=== PATIENT | female | born 1985 | race Caucasian/White ===

== ENCOUNTER 2016-06-22 10:47 | Emergency (ER) | payer OTHER | END 2016-06-22 12:42 | disposition home or self-care (01) | LOC: ER1 10:47 | DX: J02.9 Acute pharyngitis, unspecified (principal); Z20.828 Contact with and (suspected) exposure to other viral communicable diseases; F17.210 Nicotine dependence, cigarettes, uncomplicated; Z88.8 Allergy status to other drugs, medicaments and biological substances | CPT/HCPCS: 87081; 87880; 99283 ==

== ENCOUNTER 2016-08-05 18:09 | Emergency (ER) | payer OTHER | END 2016-08-05 19:45 | disposition home or self-care (01) | LOC: ER1 18:09 | DX: J06.9 Acute upper respiratory infection, unspecified (principal); F17.210 Nicotine dependence, cigarettes, uncomplicated; Z88.1 Allergy status to other antibiotic agents | CPT/HCPCS: 87081; 87880; 99283 ==

== ENCOUNTER → 2020-07-04 | Outpatient (CLI) | payer OTHER ==
[~2020-07-04] MED LIST: REGLAN10 MG PO
== END ==
LOC: KOH-I 12:35
DX: M54.42 Lumbago with sciatica, left side (principal); G89.29 Other chronic pain
CPT/HCPCS: 72100

== ENCOUNTER → 2021-02-14 | Outpatient (CLI) | payer OTHER | LOC: KOH-I 12:45 | DX: M25.561 Pain in right knee (principal) | CPT/HCPCS: 73562 ==

== ENCOUNTER 2021-03-05 15:56 | Emergency (ER) | payer OTHER ==
[2021-03-05] MEDS ORDERED: AUGMENTIN 875-1 EACH PO (18:37)
== END 2021-03-05 18:48 | disposition home or self-care (01) ==
LOC: ER1 15:56
DX: J40 Bronchitis, not specified as acute or chronic (principal); R04.2 Hemoptysis; H66.91 Otitis media, unspecified, right ear; Z88.1 Allergy status to other antibiotic agents; Z88.8 Allergy status to other drugs, medicaments and biological substances; F17.200 Nicotine dependence, unspecified, uncomplicated
CPT/HCPCS: 71046; 85379; 99283